=== PATIENT | male | born 2000 ===

== ENCOUNTER 2022-06-22 16:44 | Emergency (ER) | payer OTHER ==
[2022-06-22] MEDS ORDERED: Lidocaine 1% 5 ML VIAL INJECT ONE (17:38)
[2022-06-22] MEDS ORDERED: Bupivacaine 0.5% 10 ML SDV INJECT ONE (17:38)
[2022-06-22] MEDS ORDERED: ceFAZolin 2 GM in Premix Bag 1 BAG IV ONE (18:51)
== END 2022-06-22 19:55 | disposition home or self-care (01) ==
LOC: MW.ED 16:44
DX: S61.211A Laceration without foreign body of left index finger without damage to nail, initial encounter (principal); W26.8XXA Contact with other sharp object(s), not elsewhere classified, initial encounter; Y99.0 Civilian activity done for income or pay
CPT/HCPCS: 12002; 73130; 96365; 99283; J0690; J3490